=== PATIENT | female | born 1980 | race Caucasian/White ===

== ENCOUNTER 2017-05-12 08:22 | Day surgery (SDC) | payer BC ==
[~2017-05-12 08:22] MED LIST: Lactated Ringers 1,000 ML IV SCH; Lidocaine 1%/Sod Bicarbonate in NS 8.4% 1 ML Syringe IDERM PRN; Sodium Chloride 0.9% 10 ML Syringe FLUSH PRN
[2017-05-12] MEDS ORDERED: Bupivacaine 0.25% 10 ML SDV ONE (08:58)
[2017-05-12] MEDS ORDERED: Propofol 200 MG/20 ML SDV ONE (09:25)
[2017-05-12] MEDS ORDERED: fentaNYL 100 MCG/2 ML SDV ONE (09:25)
[2017-05-12] MEDS ORDERED: Midazolam 1 MG/ML 2 ML SDV ONE (09:26)
[2017-05-12] MEDS ORDERED: Ketamine 500 mg/10 ML MDV ONE (09:26)
[2017-05-12] MEDS ORDERED: ceFAZolin 1 GM Vial ONE (09:26)
[2017-05-12] MEDS ORDERED: Lidocaine 1% 4 ML ONE (09:26)
[2017-05-12] MEDS ORDERED: Lidocaine 0.5% 50 ML SDV ONE (09:31)
[2017-05-12] MEDS ORDERED: Sodium Bicarbonate 8.4% 50 MEQ/50 ML SDV ONE (09:31)
[2017-05-12 10:42] VITALS: BP 119/67
--- NOTE | 2017-05-12 10:49 | PCM.PREANE ---
Preanesthetic Assessment - Anesthesia/Transfusion/Family Hx Anesthesia History: Prior Anesthesia Without Reaction Family History of Anesthesia Reaction: No - Review of Systems General: No Symptoms Pulmonary: No Symptoms Cardiovascular: Palpitations (None recently.) Gastrointestinal: No Symptoms Neurological: Numbness (Arms. History of bulging disks in neck. ) Other: Reports: None - Physical Assessment NPO Status Date: 05/11/17 NPO Status Time: 18:30 O2 Sat by Pulse Oximetry: 99 Respiratory Rate: 16 Vital Signs: Last Vital Signs Temp 36.4 C 05/12/17 10:32 Pulse 88 05/12/17 10:32 Resp 16 05/12/17 10:32 BP 119/67 05/12/17 10:32 Pulse Ox 99 05/12/17 10:32 Height: 1.6 m Weight: 92.533 kg ASA Class: 2 Mental Status: Alert & Oriented x3 Airway Class: Mallampati = 1 Dentition: Reports: Normal Dentition Thyro-Mental Finger Breadths: 3 Mouth Opening Finger Breadths: 3 ROM/Head Extension: Full Lungs: Clear to Auscultation, Normal Respiratory Effort Cardiovascular: Regular Rate, Regular Rhythm - Allergies Allergies/Adverse Reactions: Allergies Allergy/AdvReac Type Severity Reaction Status Date / Time clindamycin Allergy Hives Verified 05/11/17 15:59 Sulfa (Sulfonamide Allergy Hives Verified 05/12/17 09:39 Antibiotics) - Acknowledgements Anesthesia Type Planned: FRANCISCO Pt an Appropriate Candidate for the Planned Anesthesia: Yes Alternatives and Risks of Anesthesia Discussed w Pt/Guardian: Yes Pt/Guardian Understands and Agrees with Anesthesia Plan: Yes PreAnesthesia Questionnaire HEENT History: Reports: None Cardiovascular History: Reports: Hypertension, Other (See Below) Other Cardiovascular History: palpitations Respiratory History: Reports: None Gastrointestinal History: Reports: None Genitourinary History: Reports: None 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: Musculoskeletal History: Reports: Other (See Below) Other Musculoskeletal History: bilateral carpal tunnel syndrome, right rotator cuff tendinopathy Neurological History: Reports: Migraines, Other (See Below) Other Neuro History: bulging cervical disc Psychiatric History: Reports: None Endocrine/Metabolic History: Reports: Diabetes, Gestational Hematologic History: Reports: None Immunologic History: Reports: None Oncologic (Cancer) History: Reports: None Dermatologic History: Reports: None - Infectious Disease History Infectious Disease History: Reports: Chicken Pox - Past Surgical History Head Surgeries/Procedures: Reports: None HEENT Surgical History: Reports: None Cardiovascular Surgical History: Reports: None Respiratory Surgical History: Reports: None GI Surgical History: Reports: None Female Surgical History: Reports: Cervical Conization, D&C, Other (See Below) Other Female Surgeries/Procedures: essure Endocrine Surgical History: Reports: None Neurological Surgical History: Reports: None Musculoskeletal Surgical History: Reports: None Oncologic Surgical History: Reports: None Dermatological Surgical History: Reports: None - SUBSTANCE USE Smoking Status *Q: Never Smoker Second Hand Smoke Exposure: No Recreational Drug Use History: No - HOME MEDS Home Medications: Home Meds Meloxicam 15 mg PO DAILY PRN 05/11/17 [History] traMADol HCl [Tramadol HCl] 50 mg PO Q8H PRN 05/11/17 [History] - CURRENT (IN HOUSE) MEDS Current Meds: Current Medications Lactated Ringer's (Ringers, Lactated) 1,000 mls @ 125 mls/hr IV ASDIRECTED NGA Stop: 05/12/17 23:00 Last Admin: 05/12/17 08:55 Dose: 125 mls/hr Lidocaine/Sodium Bicarbonate (Buffered Lidocaine 1% In Ns 8.4%) 0.25 ml IDERM ONETIME PRN PRN Reason: Prior to IV Start Stop: 05/12/17 18:00 Last Admin: 05/12/17 08:55 Dose: 0.25 ml Sodium Chloride (Saline Flush) 10 ml FLUSH ASDIRECTED PRN PRN Reason: Keep Vein Open Stop: 05/12/17 18:00 Discontinued Medications Bupivacaine HCl (Sensorcaine-Mpf 0.25%) Confirm Administered Dose 10 ml .ROUTE .STK-MED ONE Stop: 05/12/17 08:59 Cefazolin Sodium (Ancef) Confirm Administered Dose 2 gm .ROUTE .STK-MED ONE Stop: 05/12/17 09:27 Fentanyl (Sublimaze) Confirm Administered Dose 100 mcg .ROUTE .STK-MED ONE Stop: 05/12/17 09:26 Lidocaine HCl (Xylocaine-Mpf 1%) Confirm Administered Dose 4 mls @ as directed .ROUTE .STK-MED ONE Stop: 05/12/17 09:27 Ketamine HCl (Ketalar) Confirm Administered Dose 500 mg .ROUTE .STK-MED ONE Stop: 05/12/17 09:27 Lidocaine HCl (Xylocaine-Mpf 0.5%) Confirm Administered Dose 50 ml .ROUTE .STK- MED ONE Stop: 05/12/17 09:32 Midazolam HCl (Versed 1 Mg/Ml) Confirm Administered Dose 2 mg .ROUTE .STK-MED ONE Stop: 05/12/17 09:27 Propofol (Diprivan 20 Ml) Confirm Administered Dose 600 mg .ROUTE .STK-MED ONE Stop: 05/12/17 09:26 Sodium Bicarbonate (Sodium Bicarbonate 8.4%) Confirm Administered Dose 50 meq .ROUTE .STK-MED ONE Stop: 05/12/17 09:32
--- NOTE | 2017-05-12 12:29 | PCM48HPAN ---
Post Anesthesia Note - EVALUATION WITHIN 48HRS OF ANESTHETIC Vital Signs in Normal Range: Yes Patient Participated in Evaluation: Yes Respiratory Function Stable: Yes Airway Patent: Yes Cardiovascular Function Stable: Yes Hydration Status Stable: Yes Pain Control Satisfactory: Yes Nausea and Vomiting Control Satisfactory: Yes Mental Status Recovered: Yes
--- NOTE | 2017-05-12 18:40 | OR ---
DATE OF OPERATION: 05/12/2017 SURGEON: Santino Owens MD PREOPERATIVE DIAGNOSIS: Left carpal tunnel syndrome. POSTOPERATIVE DIAGNOSIS: Left carpal tunnel syndrome. OPERATION PERFORMED: Left open carpal tunnel release. ANESTHESIA: [place] block. COMPLICATIONS: None. SPECIMENS: None. ESTIMATED BLOOD LOSS: Minimal. INDICATION: Ms. Smith is a pleasant 36-year-old female with symptomatic carpal tunnel syndrome; after discussing the risks, benefits, alternatives, as well as conservative as well as surgical treatment, the patient verbalized understanding and wished to proceed with surgery. DESCRIPTION OF PROCEDURE: The patient was brought to the operating room, underwent [place] blockade to her left upper extremity, was prepped and draped in a standard orthopedic fashion. Surgical pause was performed identifying the appropriate patient and appropriate extremity to be operated upon. Preoperative antibiotics were given. I made a longitudinal incision between the thenar and hypothenar eminence. Sharp dissection was carried through skin and subcutaneous tissue. Hemostasis was obtained. We medialized the former fascial fibers down to the level of the transverse carpal ligament. She had a very robust palmaris brevis tendon. This was divided. We then incised the lateral ulnar aspect of the transverse carpal ligament and released the transverse carpal ligament antebrachial fascia proximally for 3 cm. We turned our attention distally, again to the right second hypertrophic transverse carpal ligament. This was released down to the level of the superficial palmar arch. We evaluated the contents of the carpal tunnel fusiform compression of the median nerve at the junction of the medial transverse carpal ligament and antebrachial fascia. I irrigated the wounds thoroughly. We closed the skin with 5-0 nylon. She was placed in a soft dressing and brought to recovery in satisfactory condition. MMODAL /[id number]
== END 2017-05-12 11:08 | disposition home or self-care (01) ==
LOC: JD.SDS 08:22
PROVIDERS: ATTEND Orthopaedic Surgery
DX: G56.02 Carpal tunnel syndrome, left upper limb (principal); Z88.1 Allergy status to other antibiotic agents; Z88.2 Allergy status to sulfonamides; Z79.899 Other long term (current) drug therapy
CPT/HCPCS: 64721; 87641; J0690; J2250; J3010; J7120; J2704